=== PATIENT | female | born 2000 | race Caucasian/White ===

== ENCOUNTER 2022-12-09 18:22 | Outpatient (CLI) | payer MEDICAID, SELFPAY ==
[2022-12-09 23:48] LABS: GC DNA Amplified* NOT DETECTED (No Detected)
[2022-12-10 00:04] LABS: Chlamydia DNA Amplified* DETECTED (No Detected)
== END 2022-12-09 18:23 | disposition home or self-care (01) ==
PROVIDERS: Visit Provider Nurse Practitioner Family
DX: Z11.3 Encounter for screening for infections with a predominantly sexual mode of transmission (principal)
CPT/HCPCS: 86592; 86703; 87086; 87186; 87491; 87591